=== PATIENT | female | born 1930 | race Hispanic/Latino ===

== ENCOUNTER 2020-06-27 13:03 | Emergency (ER) | payer OTHER ==
[2020-06-27] MEDS ORDERED: PROPOFOL 10 MG/ML 20ML VIAL IV ONE (14:03)
[2020-06-27] MEDS ORDERED: MORPHINE SULFATE 2 MG/ML 1ML SYG ONE (14:04)
== END 2020-06-27 16:01 | disposition home or self-care (01) ==
LOC: EDH 13:03
DX: S43.014A Anterior dislocation of right humerus, initial encounter (principal); W01.0XXA Fall on same level from slipping, tripping and stumbling without subsequent striking against object, initial encounter; Y93.01 Activity, walking, marching and hiking; Y92.098 Other place in other non-institutional residence as the place of occurrence of the external cause; Y99.8 Other external cause status
CPT/HCPCS: 23650; 73020; 73030; 96374; 99284; J2704